=== PATIENT | female | born 1965 | race Caucasian/White ===

== ENCOUNTER 2021-05-04 12:04 | Emergency (ER) | payer SELFPAY ==
--- NOTE | 2021-05-04 12:10 | NUR ---
called to triage,no answer
[2021-05-04] MEDS ORDERED: HYDR-3980 PO ×2 (12:12→12:20)
[2021-05-04] MEDS ORDERED: DIAZ10TA4 PO ×2 (12:12→12:20)
--- NOTE | 2021-05-04 12:15 | NUR ---
called to triage,no answer
--- NOTE | 2021-05-04 12:20 | NUR ---
called to triage,no answer
== END 2021-05-04 12:39 | disposition left against medical advice (07) ==
LOC: ER 12:11
DX: Z53.21 Procedure and treatment not carried out due to patient leaving prior to being seen by health care provider (principal); F41.9 Anxiety disorder, unspecified